=== PATIENT | male | born 1965 | race Caucasian/White ===

== ENCOUNTER 2019-03-02 06:33 | Day surgery (SDC) | payer BC, OTHER ==
[2019-02-19 10:54] VITALS: BMI 38.6
[2019-03-02 07:00] VITALS: TEMP 97.6
[2019-03-02] MEDS ORDERED: BUPIVACAINE HCL 0.25% 125 MG/50 ML VIAL ONE (07:29)
[2019-03-02] MEDS ORDERED: LIDOCAINE 1% P/F 10 MG/ML VIAL ONE (07:41)
[2019-03-02] MEDS ORDERED: LIDOCAINE HCL 1% PRESERVATIVE FREE - 30ML VIAL ONE (07:42)
[2019-03-02] MEDS ORDERED: ALBUTEROL SO4 8 GM HFA INHALER IH PRN (07:45)
[2019-03-02] MEDS ORDERED: MIDAZOLAM HCL 2 MG/2 ML SINGLE DOSE VIAL ONE ×2 (07:49→08:09)
[2019-03-02] MEDS ORDERED: PROPOFOL 20 ML ONE (07:49)
[2019-03-02] MEDS ORDERED: SUCCINYLCHOLINE CHLORIDE 200 MG/10 ML VIAL ONE (07:49)
--- NOTE | 2019-03-02 07:50 | HP ---
Satellite [facility] - Chief Complaint History Source: Patient Limitations to Obtaining History: No Limitations - Past Medical History Allergies/Adverse Reactions: Allergies Allergy/AdvReac Type Severity Reaction Status Date / Time Sulfa (Sulfonamide Allergy Verified 02/19/19 10:39 Antibiotics) envirnmental Allergy Uncoded 02/19/19 10:39 seasonal Allergy Uncoded 02/19/19 10:39 Cardiovascular: Yes: HTN Pulmonary: Yes: Asthma, COPD Gastrointestinal: Yes: GERD - Current Medications Current Medications: Home Medications Medication Instructions Recorded Albuterol Sulfate Inhaler - 1 - 2 inh PO QID PRN 02/19/19 [Ventolin Hfa Inhaler -] Amlodipine Besylate 10 mg PO DAILY 02/19/19 Budesonide/Formeterol Fumarate 1 inh PO BID 02/19/19 [SYMBICORT 160/4.5mcg -] Furosemide [Lasix -] 20 mg PO DAILY 02/19/19 Gabapentin [Neurontin -] 300 mg PO Q8H 02/19/19 Losartan Potassium [Cozaar] 100 mg PO DAILY 02/19/19 Meloxicam [Mobic] 15 mg PO DAILY 02/19/19 Metoprolol Tartrate [Lopressor -] 25 mg PO BID 02/19/19 Tamsulosin HCl [Flomax] 0.4 mg PO HS 02/19/19 Tizanidine HCl 2 mg PO TID PRN 02/19/19 Docusate Sodium [Colace -] 100 mg PO TID #90 capsule 03/02/19 Oxycodone HCl/Acetaminophen 1 - 2 tab PO Q4H #14 tablet MDD 4 03/02/19 [Percocet 5-325 mg Tablet] Satellite Physical Exam - Physical Examination Vital Signs: Vital Signs Period Temp Pulse Resp BP Sys/Diaz Pulse Ox Last 24 Hr 97.6 F 66 20 147/103 94 General Appearance: Well Nourished Lung: Clear to auscultation Heart: Regular rate & rhythm Abdomen: Soft, No tenderness Extremities: Other (Upper back/lower neck mass -midline, 4cm x 4cm; no erythema , no discharge) Neurological: Alert, Oriented Satellite Impression/Plan - Impression/Plan Impression: Upper back/lower neck mass Operative Procedure: Excision of upper back/lower neck mass Date to be Performed: 03/02/19
--- NOTE | 2019-03-02 09:00 | OP ---
Operative Note - Note: Operative Date: 03/02/19 Pre-Operative Diagnosis: Upper back/lower neck mass Operation: Excision of Upper back/lower neck mass Findings: Upper back/lower neck mass 5cm x 5cm Post-Operative Diagnosis: Same as Pre-op Surgeon: Giuseppe Matthews Anesthesia: Local, MAC Specimens Removed: Upper back/lower neck mass. 5cm x 5cm Estimated Blood Loss (mls): 5 Operative Report Dictated: Yes
[2019-03-02 09:34] VITALS: PULSE 61
[2019-03-02] MEDS ORDERED: PATIENT'S OWN MEDICATION (NON-FORMULARY) (Losartan Potassium [Cozaar] 100 MG) PO SCH (10:00)
[2019-03-02] MEDS ORDERED: amLODIPine BESYLATE 10 MG TABLET (FP) PO SCH ×2 (10:00)
[2019-03-02] MEDS ORDERED: PATIENT'S OWN MEDICATION (NON-FORMULARY) (Meloxicam [Mobic] 15 MG) PO SCH (10:00)
[2019-03-02 10:13] VITALS: BP 146/92
--- NOTE | 2019-03-02 12:02 | OP ---
DATE OF OPERATION: 03/02/2019 SURGEON: Tone Matthews MD PLACE OF SURGERY: [facility] PREOPERATIVE DIAGNOSIS: Upper back/lower neck mass. POSTOPERATIVE DIAGNOSIS: Upper back/lower neck mass. PROCEDURE: Excision of upper back/lower neck mass, 5 cm x 5 cm in size. SPECIMEN: Upper back/lower neck mass. ESTIMATED BLOOD LOSS: 5 mL. DRAINS: None. ANESTHESIA: MAC/local. REASON FOR PROCEDURE: This is a 53-year-old male who presented to the office for evaluation of a upper back/lower neck mass. He had prior masses in other locations in the past and had them excised. We discussed the different options and decided to proceed with an excision of the mass. Risks and benefits of the procedure were explained. This included bleeding, infection, injury to surrounding structures, vessel injury, nerve injury, muscle injury, recurrence of mass, FL, DVT, PE as some of the complications. He understood and signed informed consent. DESCRIPTION OF PROCEDURE: The patient was placed in the prone position. The area was prepped and draped in the usual sterile fashion. Timeout was performed. A transverse incision was made over the area of the mass, skin and subcutaneous tissue dissected. The mass was noted and circumferentially dissected using both electrocautery as well as sharp Metzenbaum scissors. After meticulous dissection, the mass was circumferentially freed, excised from its base and sent off the field. The mass was noted to be approximately 5 cm x 5 cm in size. Hemostasis was obtained using electrocautery. Irrigation was then performed in the wound, which was noted to be clean. The deep tissue was closed using 0 Vicryl sutures followed by 3-0 Vicryl sutures. The skin was closed using 4-0 Biosyn. Sterile dressings were applied along with a pressure dressing. The patient tolerated the procedure well, was transferred to recovery room in stable condition. TONE MATTHEWS M.D. JOCE/[id number]
[2019-03-02] MEDS ORDERED: PROMETHAZINE HCL 25 MG/1 ML VIAL IVPUSH PRN (12:13)
[2019-03-02] MEDS ORDERED: ONDANSETRON 4 MG/2 ML VIAL IVPUSH PRN (12:13)
[2019-03-02] MEDS ORDERED: oxyCODONE HCL 5 MG TABLET PO PRN ×2 (12:13)
[2019-03-02] MEDS ORDERED: GABAPENTIN 300 MG CAPSULE (FP) PO SCH (14:00)
[2019-03-02] MEDS ORDERED: TAMSULOSIN HCL 0.4 MG CAP PO SCH (22:00)
[2019-03-02] MEDS ORDERED: METOPROLOL TARTRATE 25 MG TABLET (FP) PO SCH (22:00)
[2019-03-02] MEDS ORDERED: BUDESONIDE/FORMETEROL FUMARATE 160/4.5 mcg INHALER IH SCH (22:00)
[2019-03-03] MEDS ORDERED: LOSARTAN POTASSIUM 50 MG TABLET (FP) PO SCH (10:00)
[2019-03-03] MEDS ORDERED: FUROSEMIDE 20 MG TABLET (FP) PO SCH (10:00)
--- NOTE | 2019-03-06 12:17 | PATH ---
Surgical Pathology Report Patient Name: ANATOLIY INGRAM [facility]. Rec. #: [id number] /Age/Gender: 1965 (Age: 53) / M Account: [id number] Location: [facility] AMBULATORY Taken: 03/02/2019 Received: 03/02/2019 Reported: 03/06/2019 Physicians: Giuseppe Matthews M.D. Specimen(s) Received BACK/NECK MASS Clinical History Back/neck mass Final Diagnosis BACK/NECK, MASS, EXCISION: LIPOMA. Electronically Signed Su Santana M.D. Gross Description Received in formalin labeled "back/neck mass," is a 3.2 x 3.0 x 2.6 cm portion of yellow, lobulated adipose tissue. Sectioning reveals homogeneous yellow, smooth fat. No areas of hemorrhage or necrosis are identified. Hand Tube Winder sections are submitted in 2 cassettes. /03/03/2019 saudi/03/03/2019
== END 2019-03-02 09:55 | disposition home or self-care (01) ==
LOC: FASU 06:33
PROVIDERS: ATTEND Surgery
PROC: 0JB70ZZ Excision of Back Subcutaneous Tissue and Fascia, Open Approach (ICD-10-PCS; principal; 2019-03-02 08:12)
DX: D17.1 Benign lipomatous neoplasm of skin and subcutaneous tissue of trunk (principal); I10 Essential (primary) hypertension; J44.9 Chronic obstructive pulmonary disease, unspecified
CPT/HCPCS: 88304-TC

== ENCOUNTER 2019-03-30 08:41 | Inpatient (IN) | payer BC, OTHER ==
[2019-03-20 12:33] VITALS: BMI 39.7
[2019-03-30] MEDS ORDERED: BUPIVACAINE HCL/PF 2.5 MG/ML - 30 ML VIAL IJ ONE (08:44)
[2019-03-30] MEDS ORDERED: ALBUTEROL SO4 8 GM HFA INHALER IH PRN (09:29)
[2019-03-30] MEDS ORDERED: BUPIVACAINE HCL/PF (5 MG/ML) 30 ML VIAL IJ ONE (09:40)
[2019-03-30] MEDS ORDERED: MIDAZOLAM HCL 2 MG/2 ML SINGLE DOSE VIAL ONE (09:40)
[2019-03-30] MEDS ORDERED: PROPOFOL 20 ML ONE ×2 (09:46→11:32)
[2019-03-30] MEDS ORDERED: ceFAZolin SODIUM 1 GM VIAL ONE (09:47)
[2019-03-30] MEDS ORDERED: ONDANSETRON 4 MG/2 ML VIAL ONE ×2 (09:47→12:09)
[2019-03-30] MEDS ORDERED: SODIUM CHLORIDE 0.9% P/F 10 ML VIAL IJ ONE (09:47)
[2019-03-30] MEDS ORDERED: DEXAMETHASONE SOD PHOSPHATE 4 MG/1 ML VIAL ONE ×2 (09:47→09:50)
[2019-03-30] MEDS ORDERED: KETOROLAC TROMETHAMINE 30 MG/1 ML VIAL ONE (09:47)
[2019-03-30] MEDS ORDERED: LIDOCAINE HCL/PF 2% SDV 5ML VIAL ONE (09:47)
[2019-03-30] MEDS ORDERED: ROCURONIUM BROMIDE 50 MG/5 ML VIAL ONE ×2 (09:51→11:25)
[2019-03-30] MEDS ORDERED: SUCCINYLCHOLINE CHLORIDE 200 MG/10 ML SYRINGE ONE (09:51)
--- NOTE | 2019-03-30 09:56 | HP ---
Admitting History and Physical - Admission Chief Complaint: Morbid obesity History Source: Patient Limitations to Obtaining History: No Limitations - Past Medical History Cardiovascular: Yes: AFIB, HTN Pulmonary: Yes: Asthma, COPD Gastrointestinal: Yes: GERD - Past Surgical History Additional Past Surgical History: lipoma removal adenoid surgery - Smoking History Smoking history: Never smoked - Alcohol/Substance Use Hx Alcohol Use: No Home Medications - Allergies Allergies/Adverse Reactions: Allergies Allergy/AdvReac Type Severity Reaction Status Date / Time Sulfa (Sulfonamide Allergy Verified 03/30/19 08:57 Antibiotics) envirnmental Allergy Uncoded 03/30/19 08:57 seasonal Allergy Uncoded 03/30/19 08:57 - Home Medications Home Medications: Ambulatory Orders Albuterol Sulfate Inhaler - [Ventolin Hfa Inhaler -] 1 - 2 inh PO QID PRN Amlodipine Besylate 10 mg PO DAILY 02/19/19 Budesonide/Formeterol Fumarate [SYMBICORT 160/4.5mcg -] 1 inh PO BID 02/19/19 Furosemide [Lasix -] 20 mg PO DAILY 02/19/19 Gabapentin [Neurontin -] 300 mg PO Q8H 02/19/19 Losartan Potassium [Cozaar] 100 mg PO DAILY 02/19/19 Meloxicam [Mobic] 15 mg PO DAILY 02/19/19 Metoprolol Tartrate [Lopressor -] 25 mg PO BID 02/19/19 Tamsulosin HCl [Flomax] 0.4 mg PO HS 02/19/19 Tizanidine HCl 2 mg PO TID PRN 02/19/19 Docusate Sodium [Colace -] 100 mg PO TID #90 capsule 03/02/19 Apixaban [Eliquis] 5 mg PO BID 03/20/19 Docusate Sodium [Colace -] 100 mg PO TID #90 capsule 03/30/19 Famotidine [Pepcid] 20 mg PO BID #60 tablet 03/30/19 Ondansetron [Zofran -] 8 mg PO Q6H PRN #30 tablet 03/30/19 Oxycodone HCl/Acetaminophen [Percocet 5-325 mg Tablet] 1 - 2 tab PO Q4H #28 tablet MDD 4 03/30/19 Review of Systems - Review of Systems Constitutional: denies: Chills, Fever Neck: reports: No Symptoms Cardiovascular: reports: No Symptoms Respiratory: reports: No Symptoms Gastrointestinal: reports: No Symptoms Neurological: reports: No Symptoms Pain Intensity: 0 Physical Examination Vital Signs: Vital Signs Temperature 98.3 F 03/30/19 09:20 Pulse Rate 73 03/30/19 09:20 Respiratory Rate 03/30/19 09:20 Blood Pressure 149/94 03/30/19 09:20 O2 Sat by Pulse Oximetry (%) 95 03/30/19 09:21 Constitutional: Yes: No Distress Neck: Yes: WNL Cardiovascular: Yes: WNL Respiratory: Yes: Regular, Diminished Gastrointestinal: Yes: Soft, Abdomen, Obese Neurological: Yes: Alert, Oriented Problem List - Problems (1) Morbid obesity due to excess calories Code(s): E66.01 - MORBID (SEVERE) OBESITY DUE TO EXCESS CALORIES
[2019-03-30] MEDS ORDERED: PHENYLEPHRINE HCL 10 MG/1 ML SINGLE DOSE VIAL ONE (11:05)
[2019-03-30] MEDS ORDERED: NEOSTIGMINE METHYLSULFATE 0.5 MG/ML - 10 ML MDV ONE (11:32)
[2019-03-30] MEDS ORDERED: GLYCOPYRROLATE 0.2 MG/1 ML VIAL ONE (11:33)
[2019-03-30] MEDS ORDERED: BUPIVACAINE HCL/PF 0.25% (2.5MG/ML) 10 ML VIAL IJ ONE (11:45)
[2019-03-30] MEDS ORDERED: FAMOTIDINE 20 MG/50 ML IVPB 20 MG/50 ML MG IVPB ONE (11:48)
--- NOTE | 2019-03-30 11:49 | OP ---
Operative Note - Note: Operative Date: 03/30/19 Pre-Operative Diagnosis: Morbid obesity Operation: diagnostic laparoscopy. laparoscopic vertical sleeve gastrectomy. laparoscopic wedge liver biopsy. laparoscopic oversewing of gastric staple line Post-Operative Diagnosis: Same as Pre-op (as well as hepatomegaly) Surgeon: Giuseppe Matthews X Ray Technician: Blair Patrick Anesthesia: General Specimens Removed: Greater curvature of stomach. Liver biopsy Estimated Blood Loss (mls): 30 Drains & Tubes with Location: 36 Fr bougie Operative Report Dictated: Yes
[2019-03-30] MEDS: METOCLOPRAMIDE HCL INJECTION 10 MG/2 ML VIAL IVPUSH SCH ×3 (12:00→23:54)
[2019-03-30] MEDS ORDERED: SODIUM CHLORIDE 1,000 ML IV SCH (12:00)
[2019-03-30] MEDS: ONDANSETRON 4 MG/2 ML VIAL IVPUSH SCH ×4 (12:07→23:53)
[2019-03-30] MEDS: ACETAMINOPHEN 1000 MG/100 ML VIAL (NON FORMULARY) IVPB SCH ×3 (12:15→23:52)
[2019-03-30] MEDS ORDERED: FAMOTIDINE 20 MG PREMIXED IVPB IVPB ONE (12:25)
[2019-03-30] MEDS ORDERED: oxyCODONE HCL 5 MG TABLET PO PRN ×2 (12:28)
[2019-03-30] MEDS ORDERED: LACTATED RINGERS SOLUTION 1,000 ML IV SCH (12:30)
--- NOTE | 2019-03-30 12:45 | SPEC ---
DATE OF OPERATION: 03/30/2019 SURGEON: Giuseppe Matthews MD [employer]ITATION WORKER CLEANING MACHINERY: Blair Patrick MD PLACE OF SURGERY: [facility], [address] [place] [address] PREOPERATIVE DIAGNOSES: 1. Morbid obesity. 2. Hypertension. 3. Hyperlipidemia. 4. Atrial fibrillation. POSTOPERATIVE DIAGNOSES: 1. Morbid obesity. 2. Hypertension. 3. Hyperlipidemia. 4. Atrial fibrillation. 5. Hepatomegaly. PROCEDURES: 1. Diagnostic laparoscopy. 2. Laparoscopic vertical sleeve gastrectomy. 3. Laparoscopic wedge liver biopsy. 4. Laparoscopic oversewing of gastric staple line. SPECIMEN: 1. Greater curvature of the stomach. 2. Liver biopsy. ESTIMATED BLOOD LOSS: 30 mL. DRAINS: None. ANESTHESIA: GET. BOUGIE SIZE: 36 [place]. REASON FOR PROCEDURE: This is a 53-year-old gentleman who presents for weight loss options. After describing different options, he decided to proceed with laparoscopic, possible open, vertical sleeve gastrectomy, possible liver biopsy, upper endoscopy. RISKS AND BENEFITS: After describing the different options for weight loss management, the patient decided to proceed with a laparoscopic, possible open vertical sleeve gastrectomy. The patient was seen by the respective subspecialties and cleared for surgery. The risks and benefits of the procedure were explained. These included bleeding, infection, hernia, [place], DVT, PE, injury to surrounding structures including the liver, colon, bowel, spleen, esophagus, vessel injury, nerve injury, weight regain, gastric leak, staple line leak, sleeve leak, obstruction, vitamin deficiency, hair loss and as some of the possible complications. The patient understood and signed informed consent. DESCRIPTION OF PROCEDURE: The patient was placed supine on the operating room table. The patient underwent general endotracheal intubation. The arms were brought out at 90 degrees and secured. A footboard was placed and the legs were secured laterally with padding. The abdomen was prepped and draped in the usual sterile fashion. A timeout was performed. An incision was made in the left upper quadrant and a Veress needle inserted. Pneumoperitoneum was established. Subsequently, the Veress needle was removed and a 5-mm trocar was placed under direct visualization with the laparoscope. The laparoscopic camera was then inserted and inspection of the abdominal cavity was performed. An incision was then made in the supraumbilical area and a 15-mm trocar was placed under direct visualization. A 5-mm trocar was then placed in the right upper quadrant and a 5-mm trocar was placed below the left subcostal margin. A stab wound was made in the subxiphoid area and a Kari clamp inserted and removed to dilate the tract. A Jeancarlos liver retractor was inserted. The post was secured at the bedside by the nursing staff. The patient was placed in steep reverse Trendelenburg position and the Jeancarlos liver retractor was used to secure the liver towards the anterior abdominal wall. The pylorus was identified and 6 cm proximal to it, the lesser sac was entered using the LigaSure device. All lateral attachments to the greater curvature of the stomach, including the short gastric vessels, were ligated using the LigaSure device toward the gastrosplenic and gastrophrenic ligaments. Once this was done in its entirety, it was confirmed that all tubes within the nasal or oropharyngeal cavity, including a temperature probe were removed by Anesthesia. The bougie was then inserted by Anesthesia. Transection of the stomach was then begun staying adjacent to the bougie but away from the angularis. Transection of the stomach was performed near the portion of the stomach where the lesser sac was entered. Two laparoscopic Endo-ANDREA black brit were used at this location. Laparoscopic Endo ANDREA purple staple loads were then used for the remainder of the transection until the greater curvature of the stomach was fully transected. This was done staying close to the bougie. Care was taken to stay away from the angle of His cephalad. The staple line was then inspected. Hemostasis was identified. A leak test was then performed. It was clamped distally to the staple line. Irrigation solution was placed in the left upper quadrant and air was insufflated by Anesthesia into the sleeve. No leaks were identified. No obstruction was identified. This was done through the entirety of the staple line. The stomach was suctioned and the bougie removed fully intact under direct visualization. At this point, the irrigation solution was suctioned and again, hemostasis was noted. A wedge liver biopsy was then performed. The left lobe of the liver was identified. A portion of the edge of the left lobe of the liver was grasped. Using electrocautery, a wedge of the left liver was excised. The specimen was removed and sent off the field. Hemostasis of the wedge liver biopsy site was attained and noted using electrocautery. The 15-mm supraumbilical trocar was then removed and the greater curvature specimen removed from the site using a sponge stick jo. A Conrado-Bhavesh device was then used to close the fascia with a 0 Vicryl suture at the site. Again, hemostasis was noted. The Jeancarlos liver retractor was then removed under direct visualization. Pneumoperitoneum was desufflated. Hemostasis was noted at all incision sites and Marcaine was injected at all incision sites. A 3-0 Vicryl suture was used to close the deep subcutaneous tissue at the 15-mm incision site. All incision sites were closed using 4-0 Biosyn. Sterile dressings were applied. The patient tolerated the procedure well and was transferred to the recovery room in stable condition. Please note, in addition, that the gastric staple line was oversewed using Endo Stitch device in multiple locations to aid with hemostasis. Patient tolerated the procedure well, was transferred to recovery room in stable condition. Hugo STEINBERG/[id number]
[2019-03-30] MEDS: HYDROmorphone HCL 0.5 MG/0.5 ML SYRINGE ONE ×3 (13:00→13:35)
[2019-03-30] MEDS ORDERED: HYDROmorphone HCL 0.5 MG/0.5 ML SYRINGE ONE (13:01)
[2019-03-30] MEDS ORDERED: HYDROmorphone HCL CARPU-JECT 2 MG/1 ML DISP.SYRIN IVPUSH PRN (13:11)
[2019-03-30 13:16] LABS: HEMATOCRIT 41.6 % (35.4-49); HEMOGLOBIN 14.3 GM/dl (11.7-16.9); MCH 31.2 pg (25.7-33.7); MCHC 34.3 g/dl (32.0-35.9); MEAN CELL VOLUME 90.8 fl (80-96); MEAN PLT VOLUME 9.3 fl (7.5-11.1); PLATELET COUNT 221 K/MM3 (134-434); RBC 4.58 M/mm3 (4.00-5.60); RDW 12.3 % (11.9-15.9); WHITE BLOOD COUNT 11.4 K/mm3 (4.0-10.8)
[2019-03-30 13:24] LABS: ALBUMIN 3.7 g/dl (3.4-5.0); BILIRUBIN,TOTAL 2.8 mg/dl (0.2-1); CALCIUM 8.6 mg/dl (8.5-10); CREATININE 1.2 mg/dl (0.55-1.3); POTASSIUM 4.2 mmol/L (3.5-5.1); TOT PROT 6.3 g/dl (6.4-8.2)
[2019-03-30] MEDS ORDERED: ONDANSETRON 4 MG/2 ML VIAL IVPUSH PRN (13:58)
[2019-03-30] MEDS ORDERED: PROMETHAZINE HCL 25 MG/1 ML VIAL IVPUSH PRN (13:58)
[2019-03-30] MEDS: HYDROmorphone HCL CARPU-JECT 1 MG/1 ML DISP.SYRIN IVPB PRN (16:32)
[2019-03-30] MEDS: LOSARTAN POTASSIUM 50 MG TABLET (FP) PO SCH (16:38)
[2019-03-30] MEDS: amLODIPine BESYLATE 10 MG TABLET (FP) PO SCH (16:38)
[2019-03-30] MEDS: BUDESONIDE/FORMETEROL FUMARATE 160/4.5 mcg INHALER IH SCH ×2 (16:39→21:23)
--- NOTE | 2019-03-30 18:21 | CONSULT ---
Consult Consult Specialty:: IM Reason for Consultation:: post-op medical management - History Source History Provided By: Patient Limitations to Obtaining History: No Limitations - Past Medical History Cardio/Vascular: Yes: AFIB, HTN Pulmonary: Yes: Asthma, COPD Gastrointestinal: Yes: GERD - Alcohol/Substance Use Hx Alcohol Use: No - Smoking History Smoking history: Never smoked Home Medications - Allergies Allergies/Adverse Reactions: Allergies Allergy/AdvReac Type Severity Reaction Status Date / Time Sulfa (Sulfonamide Allergy Verified 03/30/19 08:57 Antibiotics) envirnmental Allergy Uncoded 03/30/19 08:57 seasonal Allergy Uncoded 03/30/19 08:57 - Home Medications Home Medications: Ambulatory Orders Albuterol Sulfate Inhaler - [Ventolin Hfa Inhaler -] 1 - 2 inh PO QID PRN Amlodipine Besylate 10 mg PO DAILY 02/19/19 Budesonide/Formeterol Fumarate [SYMBICORT 160/4.5mcg -] 1 inh PO BID 02/19/19 Furosemide [Lasix -] 20 mg PO DAILY 02/19/19 Gabapentin [Neurontin -] 300 mg PO Q8H 02/19/19 Losartan Potassium [Cozaar] 100 mg PO DAILY 02/19/19 Meloxicam [Mobic] 15 mg PO DAILY 02/19/19 Metoprolol Tartrate [Lopressor -] 25 mg PO BID 02/19/19 Tamsulosin HCl [Flomax] 0.4 mg PO HS 02/19/19 Tizanidine HCl 2 mg PO TID PRN 02/19/19 Docusate Sodium [Colace -] 100 mg PO TID #90 capsule 03/02/19 Apixaban [Eliquis] 5 mg PO BID 03/20/19 Docusate Sodium [Colace -] 100 mg PO TID #90 capsule 03/30/19 Famotidine [Pepcid] 20 mg PO BID #60 tablet 03/30/19 Ondansetron [Zofran -] 8 mg PO Q6H PRN #30 tablet 03/30/19 Oxycodone HCl/Acetaminophen [Percocet 5-325 mg Tablet] 1 - 2 tab PO Q4H #28 tablet MDD 4 03/30/19 Review of Systems - Review of Systems Constitutional: reports: Lethargy Eyes: reports: No Symptoms HENT: reports: No Symptoms Neck: reports: No Symptoms Cardiovascular: reports: No Symptoms Respiratory: reports: Orthopnea Gastrointestinal: reports: Bloating Genitourinary: reports: No Symptoms Musculoskeletal: reports: No Symptoms Integumentary: reports: No Symptoms Neurological: reports: No Symptoms Endocrine: reports: No Symptoms Hematology/Lymphatic: reports: No Symptoms Psychiatric: reports: No Symptoms Pain Intensity: 5 Physical Exam Vital Signs: Vital Signs Temperature 97.7 F 03/30/19 14:10 Pulse Rate 78 03/30/19 14:10 Respiratory Rate 03/30/19 14:10 Blood Pressure 158/98 03/30/19 14:10 O2 Sat by Pulse Oximetry (%) 95 03/30/19 14:37 Constitutional: Yes: Well Nourished, Obese Eyes: Yes: WNL HENT: Yes: WNL Neck: Yes: WNL Cardiovascular: Yes: S1, S2 Respiratory: Yes: On BiPap, SOB on Exertion Gastrointestinal: Yes: Hypoactive Bowel Sounds Renal/: Yes: WNL Musculoskeletal: Yes: WNL Extremities: Yes: WNL Edema: Yes Peripheral Pulses WNL: Yes Integumentary: Yes: WNL Wound/Incision: Yes: Clean/Dry, Well Approximated Labs: CBC, BMP 03/30/19 12:00 03/30/19 12:00 Assessment/Plan 53 yo man with morbid obesity S/P diagnostic laparoscopy, laparoscopic vertical sleeve gastrectomy, laparoscopic wedge liver biopsy, laparoscopic oversewing of gastric staple line POD#0. pain management. incentive spirometry. JOEY: on BIPAP -GI, DVT prophylaxis. on lovenox. -chronoc COPD: cont bronchodilators. -HTN: on amlodipine 10 mg daily, losartan 100 mg daily. uncontrolled but pain may be a factor at this point. will monitor for now. -BPH: cont flomax -OOB as tolerated -hopefully will DC tomorrow if stable. assessment and plan discussed with pt and his son. labs and meds reviewed. 45 min
[2019-03-30] MEDS ORDERED: PT OWN MED DRAWER 7, Y5N ONE (20:59)
[2019-03-30] MEDS: FAMOTIDINE 20 MG/50 ML IVPB 20 MG/50 ML MG IVPB SCH (21:22)
[2019-03-30] MEDS: ENOXAPARIN NA (PORCINE) 40 MG/0.4 ML DISP.SYRIN SQ SCH (21:22)
[2019-03-30] MEDS ORDERED: TAMSULOSIN HCL 0.4 MG CAP PO SCH (22:00)
[2019-03-31] MEDS: HYDROmorphone HCL CARPU-JECT 1 MG/1 ML DISP.SYRIN IVPB PRN ×2 (02:17→08:29)
[2019-03-31] MEDS: ONDANSETRON 4 MG/2 ML VIAL IVPUSH SCH ×3 (04:27→12:05)
[2019-03-31] MEDS: METOCLOPRAMIDE HCL INJECTION 10 MG/2 ML VIAL IVPUSH SCH ×2 (06:02→12:10)
[2019-03-31] MEDS: ACETAMINOPHEN 1000 MG/100 ML VIAL (NON FORMULARY) IVPB SCH (06:02)
[2019-03-31 07:14] VITALS: BP 154/84; PULSE 77; TEMP 98
[2019-03-31 08:45] LABS: HEMATOCRIT 41.4 % (35.4-49); HEMOGLOBIN 13.7 GM/dl (11.7-16.9); MCH 30.4 pg (25.7-33.7); MEAN CELL VOLUME 91.9 fl (80-96); PLATELET COUNT 230 K/MM3 (134-434); RDW 12.6 % (11.9-15.9); WHITE BLOOD COUNT 11.8 K/mm3 (4.0-10.8)
[2019-03-31 09:01] LABS: ALBUMIN 3.7 g/dl (3.4-5.0); BILIRUBIN,TOTAL 2.1 mg/dl (0.2-1); CALCIUM 8.1 mg/dl (8.5-10); CREATININE 1.1 mg/dl (0.55-1.3); POTASSIUM 4.2 mmol/L (3.5-5.1); TOT PROT 6.2 g/dl (6.4-8.2)
[2019-03-31] MEDS: LOSARTAN POTASSIUM 50 MG TABLET (FP) PO SCH (09:10)
[2019-03-31] MEDS: amLODIPine BESYLATE 10 MG TABLET (FP) PO SCH (09:15)
[2019-03-31] MEDS: FAMOTIDINE 20 MG/50 ML IVPB 20 MG/50 ML MG IVPB SCH (09:20)
[2019-03-31] MEDS: BUDESONIDE/FORMETEROL FUMARATE 160/4.5 mcg INHALER IH SCH (09:44)
[2019-03-31] MEDS: ENOXAPARIN NA (PORCINE) 40 MG/0.4 ML DISP.SYRIN SQ SCH (09:55)
--- NOTE | 2019-03-31 10:01 | PN ---
Progress Note, Physician Chief Complaint: back pain - Current Medication List Current Medications: Active Medications Albuterol Sulfate (Ventolin Hfa Inhaler -) 1 - 2 puff IH QID PRN PRN Reason: SHORT OF BREATH/WHEEZING Last Admin: 03/30/19 12:30 Dose: 2 puff Amlodipine Besylate (Norvasc -) 10 mg PO DAILY [facility] Last Admin: 03/30/19 16:38 Dose: Not Given Budesonide/Formoterol Fumarate (Symbicort 160/4.5mcg -) 1 puff IH BID [facility] Last Admin: 03/30/19 21:23 Dose: 1 puff Enoxaparin Sodium (Lovenox -) 40 mg SQ BID [facility] Last Admin: 03/30/19 21:22 Dose: 40 mg Hydromorphone HCl (Dilaudid Injection -) 1 mg IVPB Q3H PRN PRN Reason: PAIN LEVEL 4 - 6 Last Admin: 03/31/19 08:29 Dose: 1 mg Famotidine/Sodium Chloride (Pepcid 20 Mg Premixed Ivpb -) 20 mg in 50 mls @ 100 mls/hr IVPB BID [facility] Last Admin: 03/30/19 21:22 Dose: 100 mls/hr Sodium Chloride (Normal Saline -) 1,000 mls @ 150 mls/hr IV ASDIR [facility] Last Admin: 03/30/19 16:39 Dose: Not Given Losartan Potassium (Cozaar -) 100 mg PO DAILY [facility] Last Admin: 03/30/19 16:38 Dose: Not Given Metoclopramide HCl (Reglan Injection -) 10 mg IVPUSH Q6H [facility] Last Admin: 03/31/19 06:02 Dose: 10 mg Ondansetron HCl (Zofran Injection) 4 mg IVPUSH Q4H [facility] Last Admin: 03/31/19 04:27 Dose: 4 mg Tamsulosin HCl (Flomax -) 0.4 mg PO HS [facility] Last Admin: 03/30/19 21:23 Dose: 0.4 mg - Objective Vital Signs: Vital Signs Temperature 98.0 F 03/31/19 05:00 Pulse Rate 77 03/31/19 05:00 Respiratory Rate 19 03/31/19 08:00 Blood Pressure 154/84 03/31/19 05:00 O2 Sat by Pulse Oximetry (%) 97 03/31/19 08:00 Constitutional: Yes: Well Nourished, Mild Distress Eyes: Yes: WNL HENT: Yes: WNL Neck: Yes: WNL Cardiovascular: Yes: WNL Respiratory: Yes: WNL Gastrointestinal: Yes: WNL Genitourinary: Yes: WNL Musculoskeletal: Yes: Back Pain Extremities: Yes: WNL Edema: No Peripheral Pulses WNL: Yes Integumentary: Yes: WNL Wound/Incision: Yes: Clean/Dry, Well Approximated Neurological: Yes: WNL ...Motor Strength: WNL Labs: CBC, BMP 03/31/19 07:13 03/31/19 07:13 Assessment/Plan 53 yo man with morbid obesity S/P diagnostic laparoscopy, laparoscopic vertical sleeve gastrectomy, laparoscopic wedge liver biopsy, laparoscopic oversewing of gastric staple line POD#1. pain management. incentive spirometry. JOEY: on BIPAP -GI, DVT prophylaxis. on lovenox. -chronoc COPD: cont bronchodilators. -HTN: on amlodipine 10 mg daily, losartan 100 mg daily. uncontrolled but pain may be a factor at this point. will monitor for now. -BPH: cont flomax -pre-renal azotemia: cont IV fluids. increased PO fluid intake encouraged. 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 no further workup needed. -OOB as tolerated -DC planned for later today.
== END 2019-03-31 15:00 | disposition home or self-care (01) | DRG 621 ==
LOC: FM/S 08:41
PROVIDERS: ADMIT Surgery; ATTEND Surgery
PROC: 5A09457 Assistance with Respiratory Ventilation, 24-96 Consecutive Hours, Continuous Positive Airway Pressure (ICD-10-PCS; 2019-03-30)
PROC: 0DB64Z3 Excision of Stomach, Percutaneous Endoscopic Approach, Vertical (ICD-10-PCS; principal; 2019-03-30 10:45)
PROC: 0FB24ZX Excision of Left Lobe Liver, Percutaneous Endoscopic Approach, Diagnostic (ICD-10-PCS; 2019-03-30 10:45)
DX: E66.01 Morbid (severe) obesity due to excess calories (principal); Z68.37 Body mass index [BMI] 37.0-37.9, adult; I10 Essential (primary) hypertension; E78.5 Hyperlipidemia, unspecified; I48.91 Unspecified atrial fibrillation; J44.9 Chronic obstructive pulmonary disease, unspecified; N40.0 Benign prostatic hyperplasia without lower urinary tract symptoms; K21.9 Gastro-esophageal reflux disease without esophagitis; R16.0 Hepatomegaly, not elsewhere classified
CPT/HCPCS: 36415; 74241-TC-FY; 80053; 85027; 94660; 94760; J0131